=== PATIENT | female | born 1930 ===

== ENCOUNTER 2022-08-09 15:31 | Emergency (ER) | payer OTHER ==
[~2022-08-09] VITALS: Ht 152.4 cm; Wt 45.4 kg
== END 2022-08-09 21:49 | disposition home or self-care (01) ==
LOC: ER 15:31
DX: S01.121A Laceration with foreign body of right eyelid and periocular area, initial encounter (principal); W07.XXXA Fall from chair, initial encounter; Y93.89 Activity, other specified; Y92.89 Other specified places as the place of occurrence of the external cause; I10 Essential (primary) hypertension; S02.31XA Fracture of orbital floor, right side, initial encounter for closed fracture; S62.231A Other displaced fracture of base of first metacarpal bone, right hand, initial encounter for closed fracture